=== PATIENT | female | born 1970 | race Caucasian/White ===

== ENCOUNTER 2022-03-22 20:32 | Emergency (ER) | payer OTHER, SELFPAY ==
--- NOTE | ~2022-03-22 | CT_ITS ---
EXAMINATION: CT brain wo con DATE: 03/22/2022 23:15 INDICATION: Fall. TECHNIQUE: Computed tomography (CT) of the head was performed without intravenous contrast. The mA wa s adjusted according to patient size. Iterative reconstruction technique was employed. The dose-lengt h product was 605.33 mGy-cm. COMPARISON: None FINDINGS: There is no intracranial hemorrhage, acute infarction, or abnormal intracranial mass lesion . The ventricles are normal in size. There are old fracture deformities of the nasal bones. There is mild mucosal thickening in the ethmoid sinuses. The mastoid air cells are normal. There is right fore head soft tissue swelling. IMPRESSION: 1. Normal brain. Reviewed, dictated and finalized at location A. IMPRESSION: 1. Normal brain.
--- NOTE | ~2022-03-22 | XR_ITS ---
EXAMINATION: XR elbow LT min 3V DATE: 03/22/2022 23:11 INDICATION: Left elbow pain. TECHNIQUE: 4 views of left elbow were obtained. COMPARISON: CT 03/23/2022 FINDINGS: Bone alignment is normal. There is a comminuted fracture of radial head. A 7 mm fracture fr agment is displaced into the posterior elbow joint. No arthritis. There is an elbow joint effusion. IMPRESSION: 1. Comminuted fracture of radial head. 2. Elbow joint effusion. Reviewed, dictated and finalized at location A.
--- NOTE | ~2022-03-22 | CT_ITS ---
EXAMINATION: CT elbow LT wo con DATE: 03/23/2022 01:29 INDICATION: Left radial head fracture. TECHNIQUE: Computed tomography (CT) of the left elbow was performed without intravenous contrast. Aut omated exposure control and iterative reconstruction technique were employed. The dose-length product was 409.91 mGy-cm. COMPARISON: Left elbow radiographs 03/22/2022 FINDINGS: There is a comminuted fracture of radial head. A fracture fragment involving less than 1/5 of the articular surface is displaced into the posterior joint. There is no arthritis. There is an el bow joint effusion. IMPRESSION: 1. Comminuted fracture of radial head. 2. Elbow joint effusion. Reviewed, dictated and finalized at location A.
--- NOTE | ~2022-03-22 | CT_ITS ---
EXAMINATION: CT cervical spine wo con DATE: 03/22/2022 23:15 INDICATION: Neck pain after fall TECHNIQUE: Computed tomography (CT) of the cervical spine was performed without intravenous contrast. The dose-length product was 435 mGy-cm. Automated exposure control and iterative reconstruction tech nique were employed. COMPARISON: No prior studies for comparison. FINDINGS: Reversal of cervical lordosis. Vertebral body heights are maintained. No significant disc n arrowing. No traumatic displacement. Craniovertebral junction is normal. Odontoid process within norm al limits. There is a 9 mm lytic lesion of C3 vertebral body. There is a 3 mm right upper lobe nodule , image 271. No significant paraspinal soft tissue abnormality. IMPRESSION: 1. No acute abnormality of the cervical spine. 2: Lytic lesion of C3 measuring 9 mm. Consider metastatic disease and myeloma. Recommend appropriate clinical follow-up. Reviewed, dictated and finalized at location A.
[2022-03-22 20:39] VITALS: BP 136/74; PULSE 95; RESP 20; TEMP 36.6; O2SAT 98
[2022-03-22 23:35] VITALS: BP 112/66; O2SAT 97
[2022-03-22 23:36] VITALS: O2SAT 96
[2022-03-22 23:47] VITALS: O2SAT 98
--- NOTE | 2022-03-23 00:19 | PC.NURSE ---
pt requesting to leave. erp aware
--- NOTE | 2022-03-23 00:43 | ED.UPPEXIN ---
HPI - Extremity Injury (Upper) General Chief Complaint: Extremity Injury, Upper Stated Complaint: fell, left arm pain Time Seen by Provider: 03/22/22 21:03 Source: patient Mode of arrival: ambulatory Limitations: no limitations History of Present Illness HPI narrative: 52-year-old female presents today s/p fall with complaints of left elbow pain. Patient is currently visiting from [place]. Patient had a relative . Patient has been drinking today. Patient states she was walking and tripped. She is unsure of how she landed. Patient does have abrasion to the right forehead, abrasion to right knee, and left elbow pain. Patient with medical history of blood cancer . Patient denies any loss of consciousness, or any other injuries. Patient does endorse having EtOH on board. Related Data Allergies Allergy/AdvReac Type Severity Reaction Status Date / Time No Known Allergies Allergy Verified 03/22/22 21:18 Review of Systems Review of Systems: CONSTITUTIONAL: Denies fever, chills, or sweats. EYES: Denies visual changes, redness, or discharge. CARDIOVASCULAR: Denies chest pain, palpitations, or edema. RESPIRATORY: Denies cough or dyspnea. GENITOURINARY: Denies dysuria or hematuria. SKIN: Denies rash or itching. MUSCULOSKELETAL: Left elbow pain status post fall. Denies back pain, joint pain, or myalgia. NEUROLOGIC: Denies LOC, headache, numbness, dizziness, or weakness. PSYCHIATRIC: Denies anxiety or depression. Exam Narrative: GENERAL: Well-appearing, well-nourished, and in no acute distress. HEAD: Normocephalic, abrasion to right forehead.. EYES: PERRLA and EOMI. NECK: Supple. No adenopathy or masses. No carotid bruits or JVD CHEST: Clear to auscultation. No respiratory distress. No wheezes rales or rhonchi HEART: Regular rate and rhythm. No murmur heard. Normal peripheral pulses. ABDOMEN: Soft, nontender, nondistended, normal active bowel sounds. EXTREMITIES: Left elbow tenderness. Decreased range of motion due to pain SKIN: Warm, dry, no rash. NEURO: No focal deficits. Alert and oriented x3. PSYCH: Normal mood and affect. Course Course Emergency Course: Patient aware of CT findings of left upper arm, CT of the neck. She is aware that she needs to follow-up with her oncologist and have further imaging of the neck. Patient aware of fracture of radial head. Multiple phone calls between [facility] and I discussing plan of care. [facility] unable to see all of the images sent. Decision made on limited films. Patient also refusing to be transferred. Plan for long-arm splint with follow-up at Ortho clinic. Patient is to call tomorrow for an appointment. Patient is aware if follow-up is not completed correctly that she could have long-term complications to the elbow Consultations Consultation #1: Margie consulted. He reviewed films. States patient is needing surgery, recommends calling [facility] as he does not do that surgery. Date: 03/23/22 Time: 02:41 Consultation #2: Dr. Fox consulted. limited images available for him to see. He is aware patient is refusing to be transferred. Plan long arm splint and follow up with them [facility]. Vital Signs Vital signs: Vital Signs Temperature 36.6 C 03/22/22 20:39 Pulse Rate 95 03/22/22 20:39 Respiratory Rate 20 03/22/22 20:39 Blood Pressure 136/74 03/22/22 20:39 Pulse Oximetry 98 03/22/22 20:39 Oxygen Delivery Room Air 03/22/22 20:39 Temperature 36.6 C 03/22/22 20:39 Pulse Rate 73 03/23/22 01:37 Respiratory Rate 18 03/23/22 01:37 Blood Pressure 132/88 03/23/22 01:37 Pulse Oximetry 100 03/23/22 01:37 Oxygen Delivery Room Air 03/22/22 20:39 MDM - Extremity Injury (Upper) MDM Narrative Medical decision making narrative: 52-year-old female HPI as noted. Differentials include radial fracture, ulnar fracture, left elbow pain. CT shows radial head comminuted fracture with rotated mildly displaced fragments, elbow effusion.
[2022-03-23] MEDS: traMADol HCL (*CRX) 50 MG TABLET PO (01:36)
[2022-03-23 01:37] VITALS: BP 132/88; PULSE 73; RESP 18; O2SAT 100
[2022-03-23 01:46] VITALS: BP 127/81
[2022-03-23 01:48] VITALS: O2SAT 99
--- NOTE | 2022-04-26 08:22 | PC.NURSE ---
Addendum entered by Mayte Bennett RN 04/26/22 08:23: NILSA Bustamante: Left arm, long arm splint Left arm long arm splint applied and sling. Original Note: LATE ENTRY This note is being entered to document information to the patient's record. The following information was omitted on [03/23/22], by [Alyx Bailey RN]. Left arm sling applied.
== END 2022-03-23 04:41 | disposition home or self-care (01) ==
PROVIDERS: Emergency Provider Nurse Practitioner Family
DX: S52.122A Displaced fracture of head of left radius, initial encounter for closed fracture (principal); M89.9 Disorder of bone, unspecified; S00.81XA Abrasion of other part of head, initial encounter; S80.211A Abrasion, right knee, initial encounter; Z85.89 Personal history of malignant neoplasm of other organs and systems; W01.0XXA Fall on same level from slipping, tripping and stumbling without subsequent striking against object, initial encounter
CPT/HCPCS: 29105; 70450; 72125; 73080; 73200; 99284; A4565; A9270